=== PATIENT | male | born 1985 | race Two or more races ===

== ENCOUNTER 2022-04-10 01:48 | Emergency (ER) | payer MEDICAID ==
[~2022-04-10] VITALS: Ht 172.7 cm; Wt 69.4 kg
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
[2022-04-10] MEDS ORDERED: KETOROLAC TROMETHAMINE INJ 30 MG/ML VIAL ONE (02:29)
[2022-04-10] MEDS ORDERED: KETOROLAC TROMETHAMINE INJ 30 MG/ML VIAL IV ONE (02:30)
--- NOTE | 2022-04-10 02:30 | NUR ---
OFFERED PT URINE CUP; NOT ABLE TO GIVE URINE SAMPLE AT THIS TIME. WILL F/U LATER
--- NOTE | 2022-04-10 02:52 | NUR ---
R LUKAS #20G S/L BLOOD COLLECTED AND SENT TO LAB
[2022-04-10 02:53] LABS: BASOPHILS % (AUTO) 0.4 % (0.0-2.0); HEMATOCRIT 46 % (39-51); HEMOGLOBIN 15.5 g/dL (13.5-17.5); LYMPHOCYTES % (AUTO) 19.5 % (20.0-44.0); MEAN CORPUSCULAR HGB CONC 34 g/dl (31.0-36.0); MEAN CORPUSCULAR VOLUME 92 fL (80-96); MONOCYTES # (AUTO) 0.4 K/uL (0.1-1.30); MONOCYTES % (AUTO) 7.7 % (2.0-12.0); NEUTROPHILS # (AUTO) 3.8 K/uL (1.8-8.9); NEUTROPHILS % (AUTO) 71.4 % (43.0-81.0); PLATELET COUNT (AUTO) 224 K/uL (150-450); RED BLOOD CELL COUNT(AUTO) 5.04 MIL/uL (4.5-6.0); WHITE BLOOD COUNT (AUTO) 5.4 K/uL (4.3-11.0)
[2022-04-10 03:01] LABS: CALCIUM, SERUM 8.7 mg/dL (8.5-10.1); CREATININE 0.8 mg/dL (0.6-1.3)
[2022-04-10 03:08] LABS: ALBUMIN 3.6 g/dL (3.4-5.0); BILIRUBIN,DIRECT 0.1 mg/dL (0.0-0.2); BILIRUBIN,TOTAL 0.4 mg/dL (0.2-1.0); TOTAL PROTEIN, SERUM 7.3 g/dL (6.4-8.2)
--- NOTE | 2022-04-10 03:19 | NUR ---
US TECH AT PT'S BEDSIDE
--- NOTE | 2022-04-10 03:30 | NUR ---
URINE SPECIMEN SENT TO LAB
[2022-04-10 03:53] LABS: BILIRUBIN,URINE 1+ (NEGATIVE); COLOR,URINE YELLOW (YELLOW); LEUKOCYTE ESTERASE ,URINE NEGATIVE (NEGATIVE); NITRITE, URINE NEGATIVE (NEGATIVE); PROTEIN,URINE NEGATIVE (NEGATIVE); UGLUCOSE NEGATIVE (NEGATIVE); UROBILINOGEN,URINE 0.2 EU/dL (0.2)
[2022-04-10 03:55] LABS: BACTERIA,URINE Rare /HPF (None Seen); SQUAMOUS EPITHELIAL CELL,UR Few /HPF (None Seen); WBC,URINE 0-2 /HPF (0-3)
[2022-04-10] MEDS ORDERED: IBUP-1957 PO (04:59)
[2022-04-10] MEDS ORDERED: DOXY-326 PO (04:59)
[2022-04-10] MEDS ORDERED: DOXYCYCLINE HYCLATE (100 MG) 100 MG TABLET PO ONE (05:00)
[2022-04-10] MEDS ORDERED: CEFTRIAXONE 500 MG VIAL IM ONE (05:00)
[2022-04-10] MEDS ORDERED: CEFTRIAXONE 500 MG VIAL ONE (05:29)
[2022-04-10] MEDS ORDERED: DOXYCYCLINE HYCLATE (100 MG) 100 MG TABLET ONE (05:30)
--- NOTE | 2022-04-10 05:45 | NUR ---
Patient discharged to home in stable condition. Written and verbal after care instructions given. Patient verbalizes understanding of instruction. IV removed. Catheter intact and site benign. Pressure and 4x4 applied to site. No bleeding noted.
[2022-04-10 06:16] VITALS: BP 115/68
== END 2022-04-10 06:17 | disposition home or self-care (01) ==
LOC: ER 01:56
DX: N45.1 Epididymitis (principal); J45.909 Unspecified asthma, uncomplicated; F17.200 Nicotine dependence, unspecified, uncomplicated
CPT/HCPCS: 99285; 96374; 76870; 85025; 80048; 80076; 81001; 36415; 85730; 96372; J0696; J1885

== ENCOUNTER 2022-06-12 02:12 | Emergency (ER) | payer MEDICAID ==
[~2022-06-12] VITALS: Ht 177.8 cm; Wt 77.1 kg
[~2022-06-12 02:12] MED LIST: DOXY-326 PO; IBUP-1957 PO
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
[2022-06-12] MEDS ORDERED: IBUPROFEN 400 MG TABLET ONE (02:30)
[2022-06-12] MEDS ORDERED: IBUPROFEN 400 MG TABLET PO ONE (02:30)
--- NOTE | 2022-06-12 02:37 | NUR ---
ASSOCIATE PATHOLOGIST AT PT'S BEDSIDE
[2022-06-12 03:23] VITALS: BP 131/70
--- NOTE | 2022-06-12 03:23 | NUR ---
Patient discharged to home in stable condition. Written and verbal after care instructions given. Patient verbalizes understanding of instruction.
== END 2022-06-12 03:24 | disposition home or self-care (01) ==
LOC: ER 02:13
DX: S13.8XXA Sprain of joints and ligaments of other parts of neck, initial encounter (principal); S63.592A Other specified sprain of left wrist, initial encounter; S40.012A Contusion of left shoulder, initial encounter; S50.02XA Contusion of left elbow, initial encounter; I10 Essential (primary) hypertension; J45.909 Unspecified asthma, uncomplicated; F32.A Depression, unspecified; F20.9 Schizophrenia, unspecified; F17.200 Nicotine dependence, unspecified, uncomplicated; Z98.890 Other specified postprocedural states; Z79.899 Other long term (current) drug therapy; V89.2XXA Person injured in unspecified motor-vehicle accident, traffic, initial encounter; Y93.89 Activity, other specified; Y92.410 Unspecified street and highway as the place of occurrence of the external cause; Y99.8 Other external cause status
CPT/HCPCS: 71045-TC; 72050-TC; 73030-TC; 73080-TC; 73110